=== PATIENT | male | born 1985 | race American Indian/Alaskan Native ===

== ENCOUNTER 2016-07-20 01:36 | Emergency (ER) | payer OTHER ==
[2016-07-20 02:16] VITALS: BP 103/68
--- NOTE | 2016-07-20 03:00 | Emergency Department Report ---
HPI - General Chief Complaint: Extremity Injury, Upper Time Seen by Provider: 07/20/16 02:52 - HPI HPI: 30-year-old male presents today with right hand pain and swelling post punching a wall 2 days ago. Describes his pain as 6 out of 10 constant, throbbing ache. Patient states he was not and punched a wall. Denies trying any medication for pain relief. Denies numbness, weakness, paresthesias. Denies fever, chills , nausea, vomiting, chest pain, shortness of breath, abdominal pain. ED Past Medical Hx - Past Medical History Previous Medical History?: No - Surgical History Past Surgical History?: No - Social History Smoking Status: Current Every Day Smoker Substance Use Type: Alcohol - Medications Home Medications: Home Medications Medication Instructions Recorded Confirmed Last Taken Type traMADol [Ultram 50 MG tab] 50 mg PO Q6HR PRN #30 tablet 07/20/16 Unknown Rx ED Review of Systems ROS: Stated complaint: HAND PAIN Other details as noted in HPI Constitutional: denies: chills, fever, malaise Eyes: denies: eye pain ENT: denies: ear pain, throat pain, congestion Respiratory: denies: cough, shortness of breath, wheezing Cardiovascular: denies: chest pain, palpitations Endocrine: no symptoms reported Gastrointestinal: denies: abdominal pain, nausea, vomiting Musculoskeletal: joint swelling, arthralgia Neurological: denies: headache, weakness, numbness, paresthesias Physical Exam - Physical Exam Vital Signs: Vital Signs 07/20/16 01:50 Temperature 98.2 F Pulse Rate 62 Respiratory 16 Rate Blood Pressure 103/68 [Right] O2 Sat by Pulse 98 Oximetry Physical Exam: GENERAL: The patient is well-developed and well-nourished. Patient is in NAD. HEAD: Normocephalic. Atraumatic. CHEST/LUNGS: Clear to auscultation throughout. HEART/CARDIOVASCULAR: Regular rate and rhythm. No murmurs, rubs or gallops. ABDOMEN: Abdomen is soft, nontender. Bowel sounds normoactive. No guarding or rebound tenderness. RIGHT HAND: Tenderness to palpation over her fourth and fifth metacarpals. Positive for edema and minimal ecchymosis. Normal sensation. 2 point discrimination intact. Peripheral pulses intact. Capillary refill less than 2 seconds. NEURO: Alert and oriented x 3. Normal gait. ED Course Vital Signs 07/20/16 01:50 Temperature 98.2 F Pulse Rate 62 Respiratory 16 Rate Blood Pressure 103/68 [Right] O2 Sat by Pulse 98 Oximetry - Reevaluation(s) Reevaluation #1: 07/20/16 03:40 Reexamined patient post x-ray results. Patient is nontender at the site of fracture. His right fourth digit will be put in an aluminum splint. ED Medical Decision Making - Lab Data Vital Signs 07/20/16 01:50 Temperature 98.2 F Pulse Rate 62 Respiratory 16 Rate Blood Pressure 103/68 [Right] O2 Sat by Pulse 98 Oximetry - Radiology Data Radiology results: report reviewed Right hand x-ray: There is a cortical fracture of the dorsal aspect of the base of the fourth distal phalanx. There is generalized soft tissue swelling. Normal alignment, joint space, bone mineralization. No foreign bodies. - Medical Decision Making 30-year-old male presents today with right hand pain post punching a wall. His x-ray results reveal a cortical fracture of the dorsal aspect of the base of the fourth distal phalanx. Finger splint has been applied. Patient will be provided with a referral for orthopedic. Patient is in no acute distress at this time. He will be discharged home and is encouraged to follow up with a primary care provider. He will be sent home on tramadol and is encouraged to return to the emergency room for any worsening symptoms. Critical care attestation.: If time is entered above; I have spent that time in minutes in the direct care of this critically ill patient, excluding procedure time. ED Disposition Clinical Impression: Phalanx, distal fracture of finger Qualifiers: Encounter type: initial encounter Finger: ring finger Fracture type: closed Fracture alignment: nondisplaced Laterality: right Qualified Code(s): S62.664A - Nondisplaced fracture of distal phalanx of right ring finger, initial encounter for closed fracture Hand pain Qualifiers: Laterality: right Qualified Code(s): M79.641 - Pain in right hand Disposition: DISCHARGED TO HOME OR SELFCARE Is pt being admited?: No Does the pt Need Aspirin: No Condition: Stable Instructions: Finger Fracture (ED), Hand Sprain (ED) Additional Instructions: Follow-up with primary care provider and orthopedic. Return to the emergency department if symptoms worsen. Prescriptions: traMADol [Ultram 50 MG tab] 50 mg PO Q6HR PRN #30 tablet PRN Reason: Pain Referrals: PRIMARY CARE, [Primary Care Provider] - 3-5 Days CAIT WINN MD [Staff Physician] - 3-5 Days Forms: Work/School Release Form(ED) Time of Disposition: 03:52
--- NOTE | 2016-07-20 03:21 | XRay Report ---
FINAL REPORT PROCEDURE: XR HAND 3 RT TECHNIQUE: RIGHT hand radiographs, AP, lateral, and oblique views. CPT 53770 HISTORY: Impact, pain, send for report COMPARISON: No prior studies are available for comparison. FINDINGS: Fracture (s) and/or Dislocation(s): There is a cortical fracture of the dorsal aspect of the base of the 4th distal phalanx.. Alignment: Normal . Joint space(s): Normal . Soft tissues: There is generalized soft tissue swelling.. Bone mineralization: Normal . Foreign bodies: None . IMPRESSION: There is a cortical fracture of the dorsal aspect of the base of the 4th distal phalanx.. There is generalized soft tissue swelling.. .
[2016-07-20] MEDS ORDERED: NORCO 5/325 PO ONE (03:49)
== END 2016-07-20 04:00 | disposition home or self-care (01) ==
LOC: ED 01:36
DX: S62.664A Nondisplaced fracture of distal phalanx of right ring finger, initial encounter for closed fracture (principal); M79.641 Pain in right hand; F17.200 Nicotine dependence, unspecified, uncomplicated; W22.01XA Walked into wall, initial encounter; Y93.89 Activity, other specified; Y92.89 Other specified places as the place of occurrence of the external cause; Y99.8 Other external cause status